=== PATIENT | female | born 1960 | race Caucasian/White ===

== ENCOUNTER → 2019-09-18 | Outpatient (CLI) | payer OTHER | END | disposition home or self-care (01) | LOC: RAD 13:57 | PROVIDERS: ATTEND Oral & Maxillofacial Surgery | DX: S03.03XA Dislocation of jaw, bilateral, initial encounter (principal); M26.69 Other specified disorders of temporomandibular joint; X58.XXXA Exposure to other specified factors, initial encounter; Y93.89 Activity, other specified; Y92.89 Other specified places as the place of occurrence of the external cause; Y99.8 Other external cause status | CPT/HCPCS: 70336 ==